=== PATIENT | male | born 1965 | race Caucasian/White ===

== ENCOUNTER 2019-12-28 18:36 | Emergency (ER) | payer OTHER ==
--- NOTE | 2019-12-28 19:47 | RAD REPORT ---
EXAM DESCRIPTION: RAD - Ankle Left 3 View - 12/28/2019 7:41 pm CLINICAL HISTORY: PAIN COMPARISON: No comparisons FINDINGS: No bone or joint abnormality seen. Tiny plantar calcaneal spur.
--- NOTE | 2019-12-28 20:59 | RAD REPORT ---
EXAM DESCRIPTION: US - Extrem Venous W Compress Dioni - 12/28/2019 8:29 pm CLINICAL HISTORY: left lower leg pain Bilateral leg edema and swelling. COMPARISON: No comparisons TECHNIQUE: Real-time sonographic interrogation of the left and right lower extremity deep venous sys tems was performed. FINDINGS: Normal compressibility, flow augmentation, phasic flow and spontaneous flow is identified in both the left and right lower extremity deep venous systems. IMPRESSION: No sonographic evidence of left or right lower extremity deep venous thrombosis.
--- NOTE | 2019-12-28 21:10 | ER ---
Nurse's Notes [facility] Name: Luther Newsome Age: 54 yrs Sex: Male : 1965 Arrival Date: 12/28/2019 Time: 18:37 Bed 17 Private MD: Diagnosis: Pain in left ankle and joints of left foot Presentation: 12/28 18:48 Presenting complaint: Patient states: Left ankle pain and swelling. Recently had rb1 prostate surgery on December 19, 2019, still has a catheter with a leg bag in from the surgery. Pt is concerned he may have a blood clot. Denies fever, NVD. Transition of care: patient was not received from another setting of care. Onset of symptoms was December 26, 2019. Risk Assessment: Do you want to hurt yourself or someone else? Patient reports no desire to harm self or others. 18:48 Method Of Arrival: Ambulatory rb1 18:48 Acuity: JOVITA 3 rb1 Triage Assessment: 18:52 General: Appears in no apparent distress. comfortable, Behavior is calm, cooperative, rb1 Denies fever. Pain: Complains of pain in left ankle Pain currently is 3 out of 10 on a pain scale. Neuro: Level of Consciousness is awake, alert, obeys commands, Oriented to person, place, time, situation. Respiratory: Airway is patent Respiratory effort is even, unlabored, Respiratory pattern is regular, symmetrical. Musculoskeletal: Range of motion: intact in all extremities. Historical: - Allergies: 18:52 PENICILLINS; rb1 - PMHx: 18:52 Prostate Cancer; Hypertension; High Cholesterol; rb1 - PSHx: 18:52 Prostate removal; rb1 - Immunization history:: Adult Immunizations up to date. - Coronavirus screen:: The patient has NOT traveled to [place], [place], or [place] in the past 14 days. The patient has NOT had contact with known/suspected case of Coronavirus?. - Social history:: Smoking status: Patient/guardian denies using. - Ebola Screening: : Patient negative for fever greater than or equal to 101.5 degrees Fahrenheit, and additional compatible Ebola Virus Disease symptoms. Screenin:58 Abuse screen: Denies threats or abuse. Denies injuries from another. Nutritional bp screening: No deficits noted. Tuberculosis screening: No symptoms or risk factors identified. Fall Risk None identified. Assessment: 18:58 General: SEE TRIAGE NOTE. bp 19:30 General: Appears in no apparent distress. Behavior is calm, cooperative, appropriate ea for age. Neuro: Level of Consciousness is awake, alert, obeys commands, Oriented to person, place, time, situation. Cardiovascular: Patient's skin is warm and dry. Respiratory: Airway is patent Respiratory effort is even, unlabored, Respiratory pattern is regular, symmetrical. Derm: Skin is pink, warm \T\ dry. Musculoskeletal: Circulation, motion, and sensation intact. 20:48 Reassessment: Patient and/or family updated on plan of care and expected duration. Pain ea level reassessed. Patient is alert, oriented x 3, equal unlabored respirations, skin warm/dry/pink. 21:19 Reassessment: Patient and/or family updated on plan of care and expected duration. Pain ea level reassessed. Patient is alert, oriented x 3, equal unlabored respirations, skin warm/dry/pink. Discharge instruction given to patient, verbalized the understanding of instruction. Pt left ED ambulatory accompanied by family. Vital Signs: 18:52 BP 130 / 80; Pulse 93; Resp 17; Temp 99.1(TE); Pulse Ox 95% on R/A; Weight 85.28 kg; rb1 Height 5 ft. 10 in. (177.80 cm) (R); Pain 3/10; 21:00 BP 128 / 78; Pulse 80; Resp 18; Temp 98.6; Pulse Ox 100% ; ea 18:52 Body Mass Index 26.97 (85.28 kg, 177.80 cm) rb1 ED Course: 18:37 Patient arrived in ED. as 18:51 Triage completed. rb1 18:52 Arm band placed on right wrist. rb1 18:55 Claudy Gibson PA is PHCP. cp 18:55 Luis Armando Schneider MD is Attending Physician. cp 18:57 Johnnie Momin, LIM[place] is Primary Nurse. bp 18:58 Patient has correct armband on for positive identification. Bed in low position. Call bp light in reach. Side rails up X2. 19:43 XRAY Ankle LEFT 3 view In Process Unspecified. EDMS 20:28 Ultrasound completed. Patient tolerated well. sg3 20:29 US Extremity Venous W Compression Dioni: surgery last month In Process Unspecified. EDMS 21:20 No provider procedures requiring assistance completed. Patient did not have IV access ea during this emergency room visit. Administered Medications: No medications were administered Outcome: 21:10 Discharge ordered by . michael 21:20 Discharged to home ambulatory, with family. ea 21:20 Condition: stable 21:20 Discharge instructions given to patient, Instructed on discharge instructions, follow up and referral plans. medication usage, Demonstrated understanding of instructions, follow-up care, medications, Prescriptions given X 1. 21:21 Patient left the ED. ea Signatures: Dispatcher [employer] EDMS Sally Guerrier Corey, Abiola Pop cp, RN RN rb1 Patrizia Huffman RN RN Johnnie Minaya RN RN Farzana Danielle 3
--- NOTE | 2019-12-28 21:10 | EDPHYS ---
Physician Documentation [facility] Name: Luther Newsome Age: 54 yrs Sex: Male : 1965 Arrival Date: 12/28/2019 Time: 18:37 Bed 17 Private MD: ED Physician Luis Armando Schneider HPI: 12/28 19:05 This 54 yrs old Male presents to ER via Ambulatory with complaints of Ankle cp Swelling - pain, Urinary Problem - catheter pain. 19:05 The patient presents with pain, that is acute. The complaints affect the medial aspect cp left ankle. 19:05 Onset: The symptoms/episode began/occurred 2 day(s) ago. cp 19:05 Patient reports having prostate surgery on 12-19-2019 and concerned about possible cp blood clot. 19:05 Associated signs and symptoms: Pertinent positives: calf tenderness, Pertinent cp negatives: fever, numbness, rash, warmth, weakness. Historical: - Allergies: 18:52 PENICILLINS; rb1 - PMHx: 18:52 Prostate Cancer; Hypertension; High Cholesterol; rb1 - PSHx: 18:52 Prostate removal; rb1 - Immunization history:: Adult Immunizations up to date. - Coronavirus screen:: The patient has NOT traveled to [place], [place], or [place] in the past 14 days. The patient has NOT had contact with known/suspected case of Coronavirus?. - Social history:: Smoking status: Patient/guardian denies using. - Ebola Screening: : Patient negative for fever greater than or equal to 101.5 degrees Fahrenheit, and additional compatible Ebola Virus Disease symptoms. ROS: 19:10 Constitutional: Negative for chills, fever. cp 19:10 Eyes: Negative for injury, pain, redness, and discharge. cp 19:10 Cardiovascular: Negative for chest pain. 19:10 Respiratory: Negative for cough, shortness of breath. 19:10 Abdomen/GI: Negative for abdominal pain, vomiting, diarrhea, constipation. 19:10 MS/extremity: Positive for pain, tenderness, of the medial aspect left ankle, Negative for injury or acute deformity, paresthesias. 19:10 All other systems are negative. Exam: 19:20 Constitutional: The patient appears in no acute distress, alert, awake, non-toxic, well cp developed, well nourished. 19:20 Head/Face: Normocephalic, atraumatic. cp 19:20 Musculoskeletal/extremity: Extremities: grossly normal except: noted in the medial cp aspect left ankle: pain, tenderness, ROM: limited passive range of motion due to pain, in the left ankle, Perfusion: the extremity is normally perfused throughout, Sensation intact. 19:20 Skin: cellulitis, is not appreciated, no rash present. cp Vital Signs: 18:52 BP 130 / 80; Pulse 93; Resp 17; Temp 99.1(TE); Pulse Ox 95% on R/A; Weight 85.28 kg; rb1 Height 5 ft. 10 in. (177.80 cm) (R); Pain 3/10; 21:00 BP 128 / 78; Pulse 80; Resp 18; Temp 98.6; Pulse Ox 100% ; ea 18:52 Body Mass Index 26.97 (85.28 kg, 177.80 cm) rb1 MDM: 19:03 Patient medically screened. cp 19:05 Differential diagnosis: fracture, sprain, gout, cellulitis, DVT. cp 21:10 Data reviewed: vital signs, nurses notes, radiologic studies, plain films, ultrasound, cp and as a result, I will discharge patient. 21:10 Counseling: I had a detailed discussion with the patient and/or guardian regarding: the cp historical points, exam findings, and any diagnostic results supporting the discharge/admit diagnosis, radiology results, to return to the emergency department if symptoms worsen or persist or if there are any questions or concerns that arise at home. Response to treatment: the patient's symptoms have mildly improved after treatment, and as a result, I will discharge patient. 12/28 19:03 Order name: XRAY Ankle LEFT 3 view; Complete Time: 21:06 cp 12/28 21:06 Interpretation: Report reviewed. cp 12/28 19:03 Order name: US Extremity Venous W Compression Dioni: surgery last month; Complete Time: cp 21:12/28 21:06 Interpretation: Report reviewed. cp 12/28 20:54 Order name: Aircast Ankle Splint; Complete Time: 21:19 cp Administered Medications: No medications were administered Disposition: 12/28/19 21:10 Discharged to Home. Impression: Pain in left ankle and joints of left foot. - Condition is Stable. - Discharge Instructions: Elastic Bandage and RICE, Ankle Pain. - Prescriptions for Naprosyn 500 mg Oral Tablet - take 1 tablet by ORAL route 2 times per day take with food; 20 tablet. - Medication Reconciliation Form, Thank You Letter, Antibiotic Education, Prescription Opioid Use form. - Follow up: Private Physician; When: 1 week; Reason: pain continues. - Problem is new. - Symptoms have improved. Addendum: 12/31/2019 22:10 Co-signature as Attending Physician, Luis Armando Schneider MD. r n Signatures: Dispatcher [employer] EDMS Luis Armando Schneider MD MD rn Claudy Gibson PA PA cp Abiola Rivera, RN RN [facility] Patrizia Huffman RN RN ea Corrections: (The following items were deleted from the chart) 12/28 21:21 21:10 12/28/2019 21:10 Discharged to Home. Impression: Pain in left ankle and joints of ea left foot. Condition is Stable. Forms are Medication Reconciliation Form, Thank You Letter, Antibiotic Education, Prescription Opioid Use. Follow up: Private Physician; When: 1 week; Reason: pain continues. Problem is new. Symptoms have improved. cp
[2019-12-28 21:28] VITALS: BP 128/78; TEMP 98.6; O2SAT 100
== END 2019-12-28 21:21 | disposition home or self-care (01) ==
LOC: ER 18:36
DX: M25.572 Pain in left ankle and joints of left foot (principal); Z88.0 Allergy status to penicillin; Z98.890 Other specified postprocedural states; Z85.46 Personal history of malignant neoplasm of prostate
CPT/HCPCS: 93970; 99283